=== PATIENT | female | born 1970 | race Caucasian/White ===

== ENCOUNTER 2017-07-13 10:00 | Day surgery (SDC) | payer OTHER ==
[~2017-07-13] VITALS: Ht 165.1 cm; Wt 81.6 kg
[~2017-07-13 10:00] MED LIST: BUPIVACAINE/PF 0.5% ONE
[2017-07-13] MEDS ORDERED: quetiapine PO (10:53)
[2017-07-13] MEDS ORDERED: celexa PO (10:53)
[2017-07-13] MEDS ORDERED: lipitor PEG (10:53)
[2017-07-13] MEDS ORDERED: ALBU8.5H8 INH (10:53)
[2017-07-13] MEDS ORDERED: LACTATED RINGERS 1,000 ML IV SCH (10:56)
[2017-07-13] MEDS ORDERED: FAMOTIDINE 20 MG TABLET PO ONE (11:00)
[2017-07-13] MEDS ORDERED: ACETAMINOPHEN 500 MG TABLET PO ONE (11:00)
[2017-07-13] MEDS ORDERED: METOCLOPRAMIDE 10MG TABLET PO ONE (11:00)
[2017-07-13] MEDS ORDERED: GABAPENTIN 300 MG CAPSULE PO ONE (11:00)
[2017-07-13 11:05] VITALS: BP 110/72
[2017-07-13] MEDS ORDERED: MIDAZOLAM 1 MG/ML, 2ML ONE ×2 (11:08→13:37)
[2017-07-13] MEDS ORDERED: FENTANYL PF 100 MCG/2ML ONE ×2 (11:08→13:37)
[2017-07-13 11:13] LABS: HCG UR SG 1.005 (1.003-1.030)
[2017-07-13] MEDS ORDERED: CEFAZOLIN 1,000 MG ONE (13:44)
[2017-07-13] MEDS ORDERED: ONDANSETRON 2MG/ML, 2ML ONE (13:44)
[2017-07-13] MEDS ORDERED: PROPOFOL 10 MG/ML, 20ML ONE (13:44)
[2017-07-13] MEDS ORDERED: DEXAMETHASONE 4 MG/ML, 1ML ONE (13:44)
[2017-07-13] MEDS ORDERED: PROMETHAZINE 12.5 MG SUPP PR PRN (14:00)
[2017-07-13] MEDS ORDERED: MEPERIDINE/PF 25MG/0.5ML IVPush PRN (14:00)
[2017-07-13] MEDS ORDERED: PROMETHAZINE 25 MG/ML, 1ML IV PRN (14:00)
[2017-07-13] MEDS ORDERED: LABETALOL 5MG/ML, 20ML IV PRN (14:00)
[2017-07-13] MEDS ORDERED: HYDROmorphone 1 MG/ML, 1ML IV PRN (14:00)
[2017-07-13] MEDS ORDERED: ACETAMINOPHEN 325 MG TABLET PO PRN (14:00)
[2017-07-13] MEDS ORDERED: LORazepam 2 MG/ML, 1ML IVPush PRN (14:00)
[2017-07-13] MEDS ORDERED: OXYcodone 5 MG/5 ML ORAL.SOL UDC PO PRN (14:00)
[2017-07-13] MEDS ORDERED: hydrALAzine 20 MG/ML, 1ML IV PRN (14:00)
[2017-07-13] MEDS ORDERED: ALBUTEROL SULFATE 2.5 MG/3 ML NPPB PRN (14:00)
[2017-07-13] MEDS ORDERED: FENTANYL PF 100 MCG/2ML IV PRN (14:00)
[2017-07-13] MEDS ORDERED: MEPERIDINE/PF 50 MG/ML ONE (14:13)
== END 2017-07-13 16:05 ==
LOC: OUT 10:00
PROVIDERS: ATTEND Surgery
DX: N60.12 Diffuse cystic mastopathy of left breast (principal)
CPT/HCPCS: 19120; 81025; 88307; J0690; J1100; J2175; J2250; J2405; J2704; J3010; J3490; J7120